=== PATIENT | female | born 1935 | race Caucasian/White ===

== ENCOUNTER → 2017-01-09 | Outpatient (CLI) | payer MEDICARE ==
--- NOTE | 2017-01-09 10:31 | MM ---
Reason for exam: additional evaluation requested from prior study. Last mammogram was performed 1 year ago. History: Patient is postmenopausal, has history of breast cancer at age 72, had previous chest radiation therapy at age 72, and is nulliparous. Lumpectomy of the left breast, May 2008. Core biopsy of the left breast, April 20, 2008. Radiation therapy, 2007. Cancelled Left Mammotome of the left breast, September 06, 2007. Taking antineoplastic for 4 years beginning at age 72. Physical Findings: Nurse did not find any significant physical abnormalities on exam. MG 3D Diag Mammo W/Cad HENRIQUE Bilateral CC and MLO view(s) were taken. Prior study comparison: January 07, 2016, bilateral MG 3d diag mammo w/cad HENRIQUE. January 04, 2015, bilateral MG diagnostic mammo w CAD HENRIQUE. January 01, 2014, CAD bilateral diagnostic mammogram. There are scattered fibroglandular densities. Finding #1: Architectural distortion in the left breast consistent with known lumpectomy. Finding #2: There are typically benign round, fine, linear calcifications in both breasts. There is a chronic nodularity in the right breast. Grouped calcifications in the left posterior aspect not distinctly visualized but benign morphology and posterior location. These results were verbally communicated with the patient and result sheet given to the patient on 01/09/17. ASSESSMENT: Probably benign, BI-RAD 3 RECOMMENDATION: Follow-up diagnostic mammogram of the left breast in 6 months.
== END | disposition home or self-care (01) ==
LOC: RADMAMWWP 09:15
PROVIDERS: ATTEND Internal Medicine Hematology & Oncology
DX: Z85.3 Personal history of malignant neoplasm of breast (principal)
CPT/HCPCS: G0204; G0279

== ENCOUNTER 2017-05-23 10:30 | Emergency (ER) | payer MEDICARE ==
[2017-05-23] MEDS ORDERED: SODIUM CHLORIDE 0.9% 1,000 ML IV STA ×2 (11:17)
--- NOTE | 2017-05-23 11:25 | ED ---
General Adult HPI - General Chief complaint: Weakness Stated complaint: Weakness Time Seen by Provider: 05/23/17 10:41 Source: patient, RN notes reviewed, old records reviewed Mode of arrival: wheelchair Limitations: no limitations - History of Present Illness Initial comments: This is a 81-year-old female ER for evaluation. Patient presents for evaluation regarding falls. Falls and weakness. Patient's family doctor for evaluation regarding recurrent falls and increasing weakness. Patient herself only complains of right hip pain. Patient has had increasing weakness for some time now. Patient denies any complaints of headache chest pain shortness of breath or abdominal pain - Related Data Home Medications Medication Instructions Recorded Confirmed Aspirin EC [Ecotrin] 81 mg PO DAILY PRN 03/19/16 05/23/17 Hydrochlorothiazide [Hydrodiuril] 25 mg PO DAILY 03/19/16 05/23/17 Turmeric Root Extract [Turmeric] 500 mg PO DAILY 05/23/17 05/23/17 Allergies Allergy/AdvReac Type Severity Reaction Status Date / Time No Known Allergies Allergy Verified 05/23/17 11:11 Review of Systems ROS Statement: Those systems with pertinent positive or pertinent negative responses have been documented in the HPI. ROS Other: All systems not noted in ROS Statement are negative. Past Medical History Past Medical History: Cancer, Hypertension Additional Past Medical History / Comment(s): Colonoscopy History of Any Multi-Drug Resistant Organisms: None Reported Past Surgical History: No Surgical Hx Reported Additional Past Surgical History / Comment(s): Lumpectomy Past Psychological History: No Psychological Hx Reported Smoking Status: Never smoker Past Alcohol Use History: None Reported Past Drug Use History: None Reported General Exam Limitations: no limitations General appearance: alert, in no apparent distress Head exam: Present: atraumatic, normocephalic, normal inspection Eye exam: Present: normal appearance, PERRL, EOMI. Absent: scleral icterus, conjunctival injection, periorbital swelling ENT exam: Present: normal exam, mucous membranes moist Neck exam: Present: normal inspection. Absent: tenderness, meningismus, lymphadenopathy Respiratory exam: Present: normal lung sounds bilaterally. Absent: respiratory distress, wheezes, rales, rhonchi, stridor Cardiovascular Exam: Present: regular rate, normal rhythm, normal heart sounds. Absent: systolic murmur, diastolic murmur, rubs, gallop, clicks GI/Abdominal exam: Present: soft, normal bowel sounds. Absent: distended, tenderness, guarding, rebound, rigid Extremities exam: Present: normal inspection, full ROM, normal capillary refill. Absent: tenderness, pedal edema, joint swelling, calf tenderness Back exam: Present: normal inspection Neurological exam: Present: alert, oriented X3, CN II-XII intact Psychiatric exam: Present: normal affect, normal mood Skin exam: Present: warm, dry, intact, normal color. Absent: rash Course Vital Signs 05/23/17 05/23/17 10:33 11:37 Temperature 97.5 F L Pulse Rate 105 H 103 H Respiratory 20 20 Rate Blood Pressure 176/95 146/84 O2 Sat by Pulse 97 96 Oximetry - Reevaluation(s) Reevaluation #1: 05/23/17 13:37 Patient remains without complaints throughout entire stay. Patient was initially complaints of left hip pain although she denies that now. EKG Findings - EKG Comments: EKG Findings:: EKG shows sinus tachycardia rate 106, ME 176, QRS 78, QTC 456 Medical Decision Making - Medical Decision Making 81 female year for evaluation regarding multiple recent falls. Patient has no injury, lab work are normal, patient's alert and oriented. Patient will be discharged home. Patient has no complaints - Lab Data Result diagrams: 05/23/17 10:50 05/23/17 10:50 Lab Results 05/23/17 05/23/17 05/23/17 Range/Units 10:50 10:50 10:50 WBC 4.3 (3.8-10.6) k/uL RBC 4.47 (3.80-5.40) m/uL Hgb 13.3 (11.4-16.0) gm/dL Hct 40.8 (34.0-46.0) % MCV 91.1 (80.0-100.0) fL MCH 29.7 (25.0-35.0) pg MCHC 32.6 (31.0-37.0) g/dL RDW 14.7 (11.5-15.5) % Plt Count 197 (150-450) k/uL Neutrophils % 66 % Lymphocytes % 21 % Monocytes % 7 % Eosinophils % 3 % Basophils % 1 % Neutrophils # 2.8 (1.3-7.7) k/uL Lymphocytes # 0.9 L (1.0-4.8) k/uL Monocytes # 0.3 (0-1.0) k/uL Eosinophils # 0.1 (0-0.7) k/uL Basophils # 0.0 (0-0.2) k/uL PT (9.0-12.0) sec INR (<1.2) APTT (22.0-30.0) sec Sodium 141 (137-145) mmol/L Potassium 4.1 (3.5-5.1) mmol/L Chloride 107 (98-107) mmol/L Carbon Dioxide 25 (22-30) mmol/L Anion Gap 9 mmol/L BUN 6 L (7-17) mg/dL Creatinine 0.67 (0.52-1.04) mg/dL Est GFR (MDRD) Af Amer >60 (>60 ml/min/1.73 sqM) Est GFR (MDRD) Non-Af >60 (>60 ml/min/1.73 sqM) Glucose 87 (74-99) mg/dL Calcium 9.1 (8.4-10.2) mg/dL Phosphorus 3.0 (2.5-4.5) mg/dL Magnesium 2.0 (1.6-2.3) mg/dL Total Bilirubin 1.0 (0.2-1.3) mg/dL AST 26 (14-36) U/L ALT 27 (9-52) U/L Alkaline Phosphatase 103 (38-126) U/L Total Creatine Kinase 156 H (30-135) U/L CK-MB (CK-2) 1.5 (0.0-2.4) ng/mL CK-MB (CK-2) Rel Index 1.0 Troponin I <0.012 (0.000-0.034) ng/mL Total Protein 6.3 (6.3-8.2) g/dL Albumin 3.8 (3.5-5.0) g/dL Urine Color Urine Appearance (Clear) Urine pH (5.0-8.0) Ur Specific [place] (1.001-1.035) Urine Protein (Negative) Urine Glucose (UA) (Negative) Urine Ketones (Negative) Urine Blood (Negative) Urine Nitrite (Negative) Urine Bilirubin (Negative) Urine Urobilinogen (<2.0) mg/dL Ur Leukocyte Esterase (Negative) Urine RBC (0-5) /hpf Urine WBC (0-5) /hpf Urine Mucus (None) /hpf 05/23/17 05/23/17 Range/Units 10:50 11:22 WBC (3.8-10.6) k/uL RBC (3.80-5.40) m/uL Hgb (11.4-16.0) gm/dL Hct (34.0-46.0) % MCV (80.0-100.0) fL MCH (25.0-35.0) pg MCHC (31.0-37.0) g/dL RDW (11.5-15.5) % Plt Count (150-450) k/uL Neutrophils % % Lymphocytes % % Monocytes % % Eosinophils % % Basophils % % Neutrophils # (1.3-7.7) k/uL Lymphocytes # (1.0-4.8) k/uL Monocytes # (0-1.0) k/uL Eosinophils # (0-0.7) k/uL Basophils # (0-0.2) k/uL PT 10.0 (9.0-12.0) sec INR 1.0 (<1.2) APTT 22.7 (22.0-30.0) sec Sodium (137-145) mmol/L Potassium (3.5-5.1) mmol/L Chloride (98-107) mmol/L Carbon Dioxide (22-30) mmol/L Anion Gap mmol/L BUN (7-17) mg/dL Creatinine (0.52-1.04) mg/dL Est GFR (MDRD) Af Amer (>60 ml/min/1.73 sqM) Est GFR (MDRD) Non-Af (>60 ml/min/1.73 sqM) Glucose (74-99) mg/dL Calcium (8.4-10.2) mg/dL Phosphorus (2.5-4.5) mg/dL Magnesium (1.6-2.3) mg/dL Total Bilirubin (0.2-1.3) mg/dL AST (14-36) U/L ALT (9-52) U/L Alkaline Phosphatase (38-126) U/L Total Creatine Kinase (30-135) U/L CK-MB (CK-2) (0.0-2.4) ng/mL CK-MB (CK-2) Rel Index Troponin I (0.000-0.034) ng/mL Total Protein (6.3-8.2) g/dL Albumin (3.5-5.0) g/dL Urine Color Light Yellow Urine Appearance Clear (Clear) Urine pH 7.0 (5.0-8.0) Ur Specific [place] 1.005 (1.001-1.035) Urine Protein Negative (Negative) Urine Glucose (UA) Negative (Negative) Urine Ketones Negative (Negative) Urine Blood Negative (Negative) Urine Nitrite Negative (Negative) Urine Bilirubin Negative (Negative) Urine Urobilinogen <2.0 (<2.0) mg/dL Ur Leukocyte Esterase Trace H (Negative) Urine RBC 1 (0-5) /hpf Urine WBC 2 (0-5) /hpf Urine Mucus Rare H (None) /hpf - Radiology Data Radiology results: report reviewed (CT brain C-spine chest x-ray and pelvis x- ray are negative for acute disease), image reviewed Disposition Clinical Impression: Weakness, Falls, Right hip pain Disposition: HOME SELF-CARE Condition: Good Instructions: Fall Prevention for Older Adults (ED) Referrals: Tyler Lawton MD [Primary Care Provider] - 1-2 days
[2017-05-23 11:31] LABS: Basophils % (A) 1 %; CH 30.5; CHCM 33.7; Eosinophils # (A) 0.1 k/uL (0-0.7); Eosinophils % (A) 3 %; HCT 40.8 % (34.0-46.0); HDW 2.65; HGB 13.3 gm/dL (11.4-16.0); Luc % (Auto) 2; Lymphocytes # (A) 0.9 k/uL (1.0-4.8); Lymphocytes % (A) 21 %; MCH 29.7 pg (25.0-35.0); MCHC 32.6 g/dL (31.0-37.0); MCV 91.1 fL (80.0-100.0); Mean Platelet Volume 7.3; Monocytes # (A) 0.3 k/uL (0-1.0); Monocytes % (A) 7 %; Neutrophils # (A) 2.8 k/uL (1.3-7.7); Neutrophils % (A) 66 %; RBC 4.47 m/uL (3.80-5.40); RDW 14.7 % (11.5-15.5); WBC 4.3 k/uL (3.8-10.6); WBC (Perox) 4.09
[2017-05-23 11:42] VITALS: RESP 20
[2017-05-23 11:43] LABS: ALT 27 U/L (9-52); AST 26 U/L (14-36); Alkaline Phosphatase 103 U/L (38-126); Anion Gap 9 mmol/L; Blood Urea Nitrogen 6 mg/dL (7-17); Calcium 9.1 mg/dL (8.4-10.2); Carbon Dioxide 25 mmol/L (22-30); Chloride 107 mmol/L (98-107); Glucose 87 mg/dL (74-99); Non-African American GFR(MDRD) >60 (>60 ml/min/1.73 sqM); Potassium 4.1 mmol/L (3.5-5.1); Sodium 141 mmol/L (137-145); Total Protein 6.3 g/dL (6.3-8.2)
[2017-05-23 11:51] LABS: Appearance,Urine Clear (Clear); Bilirubin,Urine Negative (Negative); Glucose,Urine (UA) Negative (Negative); Ketones,Urine Negative (Negative); Leukocyte Esterase,Urine Trace (Negative); Mucus,Urine Rare /hpf; Nitrite,Urine Negative (Negative); Particle Count 1280; Protein,Urine Negative (Negative); RBC,Urine 1 /hpf (0-5); Specific Gravity,Urine 1.005 (1.001-1.035); UA Billing (MACRO vs. MICRO) MICRO; Urobilinogen,Urine <2.0 mg/dL (<2.0); WBC,Urine 2 /hpf (0-5)
[2017-05-23 11:54] LABS: Creatine Kinase 156 U/L (30-135)
--- NOTE | 2017-05-23 12:05 | XR ---
EXAMINATION TYPE: XR chest 1V DATE OF EXAM: 05/23/2017 COMPARISON: Prior chest x-ray 03/19/2016 HISTORY: Pain, recent falls, abnormal chest x-ray TECHNIQUE: Single frontal view of the chest is obtained. FINDINGS: There is no focal air space opacity, pleural effusion, or pneumothorax seen. The cardiac silhouette size is stable, heart is enlarged. Postop change noted to the left axilla and left breast . Arthropathy noted within the shoulders. There is a spinal curvature. The osseous structures are int act. IMPRESSION: No acute process. Stable cardiomegaly.
[2017-05-23 12:08] LABS: Creatine Kinase MB 1.5 ng/mL (0.0-2.4); Troponin I <0.012 ng/mL (0.000-0.034)
[2017-05-23 12:19] LABS: Partial Thromboplastin Time 22.7 sec (22.0-30.0)
--- NOTE | 2017-05-23 13:32 | CT ---
EXAMINATION TYPE: CT brain cspine wo con DATE OF EXAM: 05/23/2017 COMPARISON: Previous exam CT Cervical spine and brain 03/19/2016 HISTORY: LÓPEZ, weakness and falls CT DLP: Brain 1089.7, Cervical 364 mGycm Automated exposure control for dose reduction was used. TECHNIQUE: CT scan of the head and cervical spine are performed without contrast. FINDINGS: There is no acute intracranial hemorrhage, mass effect, or midline shift identified. The ventricles and sulci are within normal limits in size. Cerumen in the external auditory canals. The globes are intact and the visualized sinuses are clear. White matter demyelination changes, cortical atrophy again noted. Cervical spine is visualized in its entirety from C1 through upper thoracic levels and demonstrates s atisfactory alignment without evidence of acute fracture or dislocation. Prevertebral soft tissue ap pears within normal limits. There is multilevel cervical spondylosis. Loss of disc height present at C3-4, C5-6 and C6-7. There is multilevel facet arthropathy and foraminal encroachment as on prior exa m. The C1-C2 articulation is unremarkable. IMPRESSION: 1. There is no acute fracture or dislocation evident in the cervical spine. 2. No acute intracranial hemorrhage, mass effect, or midline shift is seen.
--- NOTE | 2017-05-23 14:00 | XR ---
EXAMINATION TYPE: XR Hip RT and AP Pelvis DATE OF EXAM: 05/23/2017 COMPARISON: Pelvis 03/19/2016 HISTORY: Pain, trauma TECHNIQUE: A single AP view of the pelvis is obtained. Two views of the right hip are obtained. FINDINGS: There is no acute fracture/dislocation evident in the pelvis. Marked arthropathy is presen t in the bilateral hips, correlate for possible femoral acetabular impingement. Degenerative disc changes in the visualized spine. There are vascular calcifications in the pelvis. IMPRESSION: There is no acute fracture or dislocation in the pelvis or right hip.
[2017-05-23 14:08] VITALS: PULSE 106
[2017-05-23 14:19] VITALS: BP 151/79; TEMP 98.3
== END 2017-05-23 14:31 | disposition home or self-care (01) ==
LOC: EC 10:30
DX: R53.1 Weakness (principal); R26.9 Unspecified abnormalities of gait and mobility; M25.551 Pain in right hip; I10 Essential (primary) hypertension; Z85.9 Personal history of malignant neoplasm, unspecified; Z79.899 Other long term (current) drug therapy
CPT/HCPCS: 36415; 70450; 71010; 72125; 73502; 80053; 81001; 82550; 82553; 83735; 84100; 84484; 85025; 85610; 85730; 87086; 93005; 96360; 96361; 99285

== ENCOUNTER 2017-09-20 12:10 | Inpatient (IN) | payer MEDICARE ==
[2017-09-20] MEDS ORDERED: SODIUM CHLORIDE 0.9% 1,000 ML IV ONE (12:32)
--- NOTE | 2017-09-20 12:38 | ED ---
General Adult HPI - General Source: patient, family, EMS, RN notes reviewed Mode of arrival: EMS Limitations: no limitations, physical limitation <Jacobo Bright - Last Filed: 09/20/17 14:35> <Chicho Brown - Last Filed: 09/20/17 14:40> - General Chief complaint: Fall Stated complaint: Fall/Altered Time Seen by Provider: 09/20/17 12:15 - History of Present Illness Initial comments: This an 82-year-old female presents emergency department via EMS chief complaint fall, dizziness. Patient reports that 3 falls last 24 hours. Patient reportedly first fell last night found by her brother this morning on the ground she states that she is up-to-date on all night and has been incontinent of urine. Patient states that she is not confused though EMS reported that she's had some bouts of confusion. Father states that she is at her normal baseline at this time. Patient denies headache, dizziness, chest pain, shortness breath. She does complain of right knee pain. Patient states she may have struck her head she's unsure. Denies any no fever or chills. ( Jacobo Bright) - Related Data Home Medications Medication Instructions Recorded Confirmed Aspirin EC [Ecotrin] 81 mg PO DAILY PRN 03/19/16 09/20/17 Hydrochlorothiazide [Hydrodiuril] 25 mg PO DAILY 03/19/16 09/20/17 Turmeric Root Extract [Turmeric] 500 mg PO DAILY 05/23/17 09/20/17 Critz-3 Fatty Acids/Fish Oil [Fish 1 cap PO DAILY 09/20/17 09/20/17 Oil 1,000 mg Softgel] Allergies Allergy/AdvReac Type Severity Reaction Status Date / Time No Known Allergies Allergy Verified 09/20/17 13:19 Review of Systems ROS Other: All systems not noted in ROS Statement are negative. <Jacobo Bright - Last Filed: 09/20/17 14:35> ROS Other: All systems not noted in ROS Statement are negative. <Chicho Brown - Last Filed: 09/20/17 14:40> ROS Statement: Those systems with pertinent positive or pertinent negative responses have been documented in the HPI. Past Medical History Past Medical History: Cancer, Hypertension Additional Past Medical History / Comment(s): Colonoscopy History of Any Multi-Drug Resistant Organisms: None Reported Past Surgical History: No Surgical Hx Reported Additional Past Surgical History / Comment(s): Lumpectomy Past Psychological History: No Psychological Hx Reported Smoking Status: Never smoker Past Alcohol Use History: None Reported Past Drug Use History: None Reported <Jacobo Bright - Last Filed: 09/20/17 14:35> General Exam Limitations: no limitations, physical limitation General appearance: alert, in no apparent distress Head exam: Present: atraumatic, normocephalic, normal inspection Eye exam: Present: normal appearance, PERRL, EOMI. Absent: scleral icterus, conjunctival injection, periorbital swelling ENT exam: Present: normal exam, normal oropharynx, mucous membranes moist, TM's normal bilaterally, normal external ear exam Neck exam: Present: normal inspection, full ROM. Absent: tenderness, meningismus, lymphadenopathy Respiratory exam: Present: normal lung sounds bilaterally. Absent: respiratory distress, wheezes, rales, rhonchi, stridor Cardiovascular Exam: Present: regular rate, normal rhythm, normal heart sounds. Absent: systolic murmur, diastolic murmur, rubs, gallop, clicks GI/Abdominal exam: Present: soft, normal bowel sounds. Absent: distended, tenderness, guarding, rebound, rigid Extremities exam: Present: other (Mild swelling to the right knee, pain with range of motion) Back exam: Present: full ROM. Absent: tenderness Neurological exam: Present: alert, oriented X3, CN II-XII intact Skin exam: Present: warm, dry, intact, normal color. Absent: rash <Jacobo Bright José - Last Filed: 09/20/17 14:35> Vital Signs 09/20/17 09/20/17 12:17 14:29 Temperature 97 F L Pulse Rate 76 80 Respiratory 17 18 Rate Blood Pressure 158/80 159/78 O2 Sat by Pulse 96 99 Oximetry EKG Findings - EKG Comments: EKG Findings:: EKG performed at 12:39 normal sinus rhythm with a rate of 62 MS 150 QRS 74 QT/QTC 446/452 <Jacobo Bright - Last Filed: 09/20/17 14:35> Medical Decision Making - Lab Data Result diagrams: 09/20/17 12:54 09/20/17 12:54 <Jacobo Bright - Last Filed: 09/20/17 14:35> - Lab Data Result diagrams: 09/20/17 12:54 09/20/17 12:54 <Chicho Brown - Last Filed: 09/20/17 14:40> - Medical Decision Making The patient is seen and examined. All diagnostics are reviewed. Case is discussed with internal medicine and they're agreeable with admission. The case is discussed with the PA and agree with the findings as documented. (Chicho Brown) - Lab Data Lab Results 09/20/17 09/20/17 09/20/17 Range/Units 12:52 12:54 12:54 WBC 7.0 (3.8-10.6) k/uL RBC 4.60 (3.80-5.40) m/uL Hgb 13.3 (11.4-16.0) gm/dL Hct 41.1 (34.0-46.0) % MCV 89.4 (80.0-100.0) fL MCH 29.0 (25.0-35.0) pg MCHC 32.5 (31.0-37.0) g/dL RDW 15.3 (11.5-15.5) % Plt Count 172 (150-450) k/uL Neutrophils % 83 % Lymphocytes % 11 % Monocytes % 5 % Eosinophils % 1 % Basophils % 0 % Neutrophils # 5.8 (1.3-7.7) k/uL Lymphocytes # 0.7 L (1.0-4.8) k/uL Monocytes # 0.3 (0-1.0) k/uL Eosinophils # 0.0 (0-0.7) k/uL Basophils # 0.0 (0-0.2) k/uL PT (9.0-12.0) sec INR (<1.2) APTT (22.0-30.0) sec Sodium (137-145) mmol/L Potassium (3.5-5.1) mmol/L Chloride (98-107) mmol/L Carbon Dioxide (22-30) mmol/L Anion Gap mmol/L BUN (7-17) mg/dL Creatinine (0.52-1.04) mg/dL Est GFR (MDRD) Af Amer (>60 ml/min/1.73 sqM) Est GFR (MDRD) Non-Af (>60 ml/min/1.73 sqM) Glucose (74-99) mg/dL POC Glucose (mg/dL) 79 (75-99) mg/dL POC Glu Immunochemist ID Jarad Lopez Calcium (8.4-10.2) mg/dL Total Bilirubin (0.2-1.3) mg/dL AST (14-36) U/L ALT (9-52) U/L Alkaline Phosphatase (38-126) U/L Total Creatine Kinase 408 H (30-135) U/L CK-MB (CK-2) 6.1 H* (0.0-2.4) ng/mL CK-MB (CK-2) Rel Index 1.5 Troponin I 0.014 (0.000-0.034) ng/mL Total Protein (6.3-8.2) g/dL Albumin (3.5-5.0) g/dL Urine Color Urine Appearance (Clear) Urine pH (5.0-8.0) Ur Specific [place] (1.001-1.035) Urine Protein (Negative) Urine Glucose (UA) (Negative) Urine Ketones (Negative) Urine Blood (Negative) Urine Nitrite (Negative) Urine Bilirubin (Negative) Urine Urobilinogen (<2.0) mg/dL Ur Leukocyte Esterase (Negative) Urine WBC (0-5) /hpf Urine Bacteria (None) /hpf Urine Mucus (None) /hpf Urine Opiates Screen (NotDetected) Ur Oxycodone Screen (NotDetected) Urine Methadone Screen (NotDetected) Ur Propoxyphene Screen (NotDetected) Ur Barbiturates Screen (NotDetected) U Tricyclic Antidepress (NotDetected) Ur Phencyclidine Scrn (NotDetected) Ur Amphetamines Screen (NotDetected) U Methamphetamines Scrn (NotDetected) U Benzodiazepines Scrn (NotDetected) Urine Cocaine Screen (NotDetected) U Marijuana (THC) Screen (NotDetected) 09/20/17 09/20/17 09/20/17 Range/Units 12:54 12:54 13:02 WBC (3.8-10.6) k/uL RBC (3.80-5.40) m/uL Hgb (11.4-16.0) gm/dL Hct (34.0-46.0) % MCV (80.0-100.0) fL MCH (25.0-35.0) pg MCHC (31.0-37.0) g/dL RDW (11.5-15.5) % Plt Count (150-450) k/uL Neutrophils % % Lymphocytes % % Monocytes % % Eosinophils % % Basophils % % Neutrophils # (1.3-7.7) k/uL Lymphocytes # (1.0-4.8) k/uL Monocytes # (0-1.0) k/uL Eosinophils # (0-0.7) k/uL Basophils # (0-0.2) k/uL PT 10.3 (9.0-12.0) sec INR 1.1 (<1.2) APTT 22.5 (22.0-30.0) sec Sodium 143 (137-145) mmol/L Potassium 3.9 (3.5-5.1) mmol/L Chloride 107 (98-107) mmol/L Carbon Dioxide 24 (22-30) mmol/L Anion Gap 12 mmol/L BUN 13 (7-17) mg/dL Creatinine 0.60 (0.52-1.04) mg/dL Est GFR (MDRD) Af Amer >60 (>60 ml/min/1.73 sqM) Est GFR (MDRD) Non-Af >60 (>60 ml/min/1.73 sqM) Glucose 80 (74-99) mg/dL POC Glucose (mg/dL) (75-99) mg/dL POC Glu Immunochemist ID Calcium 9.0 (8.4-10.2) mg/dL Total Bilirubin 1.6 H (0.2-1.3) mg/dL AST 35 (14-36) U/L ALT 28 (9-52) U/L Alkaline Phosphatase 153 H (38-126) U/L Total Creatine Kinase (30-135) U/L CK-MB (CK-2) (0.0-2.4) ng/mL CK-MB (CK-2) Rel Index Troponin I (0.000-0.034) ng/mL Total Protein 5.9 L (6.3-8.2) g/dL Albumin 3.5 (3.5-5.0) g/dL Urine Color Yellow Urine Appearance Clear (Clear) Urine pH 5.5 (5.0-8.0) Ur Specific [place] 1.020 (1.001-1.035) Urine Protein Negative (Negative) Urine Glucose (UA) Negative (Negative) Urine Ketones 2+ H (Negative) Urine Blood Negative (Negative) Urine Nitrite Negative (Negative) Urine Bilirubin Negative (Negative) Urine Urobilinogen 2.0 (<2.0) mg/dL Ur Leukocyte Esterase Small H (Negative) Urine WBC 3 (0-5) /hpf Urine Bacteria Rare H (None) /hpf Urine Mucus Rare H (None) /hpf Urine Opiates Screen Not Detected (NotDetected) Ur Oxycodone Screen Not Detected (NotDetected) Urine Methadone Screen Not Detected (NotDetected) Ur Propoxyphene Screen Not Detected (NotDetected) Ur Barbiturates Screen Not Detected (NotDetected) U Tricyclic Antidepress Not Detected (NotDetected) Ur Phencyclidine Scrn Not Detected (NotDetected) Ur Amphetamines Screen Not Detected (NotDetected) U Methamphetamines Scrn Not Detected (NotDetected) U Benzodiazepines Scrn Not Detected (NotDetected) Urine Cocaine Screen Not Detected (NotDetected) U Marijuana (THC) Screen Not Detected (NotDetected) Disposition <Jacobo Bright - Last Filed: 09/20/17 14:35> <Chicho Brown - Last Filed: 09/20/17 14:40> Clinical Impression: Dizziness, Frequent falls, Pneumonia, UTI (urinary tract infection), Weakness Disposition: ADMITTED IP TO THIS [facility] Condition: Fair Referrals: Tyler Lawton MD [Primary Care Provider] - 1-2 days
[2017-09-20 12:54] LABS: Glucose,Whole Blood 79 mg/dL (75-99)
[2017-09-20 13:11] LABS: Basophils % (A) 0 %; Eosinophils % (A) 1 %; HCT 41.1 % (34.0-46.0); HGB 13.3 gm/dL (11.4-16.0); Lymphocytes # (A) 0.7 k/uL (1.0-4.8); Lymphocytes % (A) 11 %; MCHC 32.5 g/dL (31.0-37.0); MCV 89.4 fL (80.0-100.0); Mean Platelet Volume 7.9; Monocytes # (A) 0.3 k/uL (0-1.0); Monocytes % (A) 5 %; Neutrophils # (A) 5.8 k/uL (1.3-7.7); Neutrophils % (A) 83 %; Platelet Count 172 k/uL (150-450); RDW 15.3 % (11.5-15.5)
[2017-09-20 13:18] LABS: ALT 28 U/L (9-52); AST 35 U/L (14-36); Albumin 3.5 g/dL (3.5-5.0); Alkaline Phosphatase 153 U/L (38-126); Anion Gap 12 mmol/L; Blood Urea Nitrogen 13 mg/dL (7-17); Carbon Dioxide 24 mmol/L (22-30); Chloride 107 mmol/L (98-107); Glucose 80 mg/dL (74-99); Potassium 3.9 mmol/L (3.5-5.1); Sodium 143 mmol/L (137-145); Total Bilirubin 1.6 mg/dL (0.2-1.3); Total Protein 5.9 g/dL (6.3-8.2)
--- NOTE | 2017-09-20 13:37 | CT ---
EXAMINATION TYPE: CT brain wo con DATE OF EXAM: 09/20/2017 HISTORY: Fall injury with altered mental status CT DLP: 1233 mGycm. Automated Exposure Control for Dose Reduction was Utilized. TECHNIQUE: CT scan of the head is performed without contrast. COMPARISON: CT brain May 23, 2017. FINDINGS: There is no acute intracranial hemorrhage or midline shift identified. There is diffuse v entricular and sulcal prominence consistent with diffuse age-related cerebral atrophy. There is low- attenuation in the periventricular white matter consistent with chronic small vessel ischemic change. Patchy soft tissue density bilateral extraocular exams is felt to reflect cerumen similar to prior. The globes are intact and the visualized sinuses are clear. The calvarium is intact. IMPRESSION: No acute intracranial hemorrhage or midline shift. There is moderate diffuse age-relate d cerebral atrophy and chronic small vessel ischemic change redemonstrated without significant interv al change.
[2017-09-20 13:41] LABS: Appearance,Urine Clear (Clear); Bacteria,Urine Rare /hpf; Bilirubin,Urine Negative (Negative); Blood,Urine Negative (Negative); Color,Urine Yellow; Glucose,Urine (UA) Negative (Negative); Ketones,Urine 2+ (Negative); Leukocyte Esterase,Urine Small (Negative); Mucus,Urine Rare /hpf; Nitrite,Urine Negative (Negative); PH, Urine 5.5 (5.0-8.0); Protein,Urine Negative (Negative); WBC,Urine 3 /hpf (0-5)
[2017-09-20 13:42] LABS: Amphetamine Screen,Urine Not Detected (NotDetected); Barbiturate Screen,Urine Not Detected (NotDetected); Benzodiazepines Screen,Urine Not Detected (NotDetected); Cocaine Screen,Urine Not Detected (NotDetected); Methadone Screen, Urine Not Detected (NotDetected); Opiate Screen,Urine Not Detected (NotDetected); Oxycodone Screen, Urine Not Detected (NotDetected); Phencyclidine Screen,Urine Not Detected (NotDetected); Tricyclic Antidepressant,Urine Not Detected (NotDetected); Urn Cannabinoid Scrn Not Detected (NotDetected)
[2017-09-20 13:43] LABS: Troponin I 0.014 ng/mL (0.000-0.034)
[2017-09-20 13:45] LABS: Creatine Kinase MB 6.1 ng/mL (0.0-2.4)
[2017-09-20 13:47] LABS: INR 1.1 (<1.2); Partial Thromboplastin Time 22.5 sec (22.0-30.0); Prothrombin Time 10.3 sec (9.0-12.0)
--- NOTE | 2017-09-20 14:06 | XR ---
EXAMINATION TYPE: XR chest 2V DATE OF EXAM: 09/20/2017 COMPARISON: 03/19/2016 TECHNIQUE: PA and lateral views submitted. HISTORY: Altered mental status FINDINGS: No pneumothorax. Use osteopenia noted. Arthropathy of the shoulders. Postsurgical change overlying th e left chest. Subsegmental changes at the left lung base. No overt failure. IMPRESSION: 1. Left basilar atelectasis or infiltrate.
--- NOTE | 2017-09-20 14:07 | XR ---
EXAMINATION TYPE: XR knee complete RT DATE OF EXAM: 09/20/2017 COMPARISON: NONE HISTORY: Pain TECHNIQUE: Four views are submitted. FINDINGS: Hypertrophic and degenerative change of all joint spaces. Soft tissue ossification the suprapatellar bursa. Vascular calcification seen. Osseous structures are intact. No acute fracture seen. IMPRESSION: 1. Moderate to severe osteoarthritis. Loose body within the suprapatellar bursa suspected.
--- NOTE | 2017-09-20 14:08 | XR ---
EXAMINATION TYPE: XR pelvis AP view DATE OF EXAM: 09/20/2017 COMPARISON: 05/23/2017 HISTORY: Pain. FINDINGS: There is no acute fracture/dislocation evident in the pelvis. Marked arthropathy is present in the bi lateral hips, correlate for possible femoral acetabular impingement. Degenerative disc changes in the visualized spine. There are vascular calcifications in the pelvis. IMPRESSION: 1. No acute fracture.
[2017-09-20] MEDS ORDERED: NALOXONE 0.4 MG/ML 1 ML VIAL IV PRN (14:36)
[2017-09-20] MEDS ORDERED: ONDANSETRON 4 MG/2 ML VIAL IVP PRN (14:36)
[2017-09-20] MEDS ORDERED: cefTRIAXone IN SWFI 1,000 MG/10 ML SYRINGE IVP STA (14:39)
[2017-09-20] MEDS: SODIUM CHLORIDE 0.9% 1,000 ML IV SCH (15:07)
[2017-09-20] MEDS: HYDROcodone/APAP 5-325MG 1 EACH TAB PO PRN (17:39)
--- NOTE | 2017-09-20 19:25 | HP ---
HISTORY AND PHYSICAL DATE OF ADMISSION: 09/20/17. PRESENTING COMPLAINT: Acute confusion. HISTORY OF PRESENTING COMPLAINT: This is an 82-year-old patient. The patient unable to give a good history. Patient's brother gave the history downstairs that patient normally is active, was found in the house with feces and all clutter on the floor as though she had been lying there. Patient not able to give much of history. She thinks it is 1916, knows her name, has difficulty also stating where she lives. Able to move all 4 limbs, though slightly jittery. Really cannot obtain more history than that and that the patient also was incontinent. Denies any shortness of breath. No cough. REVIEW OF SYSTEMS: Difficult to obtain because of confusion. PAST MEDICAL HISTORY: Cancer, hypertension. SURGICAL HISTORY: Lumpectomy. SOCIAL HISTORY: Does not smoke or drink alcohol. Lives by herself in a trailer. Retired teacher. FAMILY HISTORY: Patient cannot remember. HOME MEDICATIONS: 1. Fish oil 1 capsule p.o. daily. 2. Turmeric 500 mg p.o. daily. 3. Hydrochlorothiazide 25 p.o. daily. 4. Aspirin 81 mg daily p.r.n. ALLERGIES: None. PHYSICAL EXAMINATION: Temperature 97, pulse 96, respirations 17, blood pressure 150/80, pulse ox 96% on room: GENERAL APPEARANCE: Average built. Lying in bed. Does have somewhat dishevelled, unkempt and dirty. Somewhat slightly shaky. EYES: Pupils equal. Conjunctivae normal.. HEENT: Oral cavity dry. NECK: JVD not raised. Mass not palpable. RESPIRATORY: Effort normal. Lungs fair entry. CARDIOVASCULAR: First and second sounds, no edema. ABDOMEN: Soft, nontender. Liver and spleen not palpable. LYMPHATIC: No lymph nodes palpable in neck or axillae. PSYCHIATRY: Patient knows her name. Had to think for some time before she said where she lives. She thinks it is 1916. NEUROLOGICAL: Pupils equal. No facial asymmetry. Occasional mild tremor. No rigidity. Having some trouble following commands. INVESTIGATIONS: White count 7, hemoglobin 13.3, platelets 132, potassium 3.9, BUN and creatinine are normal. Urine ketone is 2+. ASSESSMENT: 1. This is a patient who was found very unkempt with feces in the apartment wandering if the patient had an acute psychotic episode. 2. Ketonuria, likely from starvation. 3. Clinical dehydration. PLAN: We will start the patient on Risperdal 0.5 mg at night. Fall precautions will be done. Psychiatry has been consulted. Patient actually did eat a meal earlier per the nurse. We will give IV fluids. ornamental bronze worker will be involved. Told the nurse to have the patient cleaned up. MMODL / IJN: [id number] /
[2017-09-20] MEDS: risperiDONE 0.5 MG TAB PO SCH (20:23)
[2017-09-20] MEDS: ENOXAPARIN 40 MG/0.4 ML SYRINGE SQ SCH (20:23)
[2017-09-20] MEDS ORDERED: cefTRIAXone IN SWFI 1,000 MG/10 ML SYRINGE IVP SCH (21:00)
[2017-09-21] MEDS: SODIUM CHLORIDE 0.9% 1,000 ML IV SCH ×3 (05:32→21:07)
[2017-09-21] MEDS: ENOXAPARIN 40 MG/0.4 ML SYRINGE SQ SCH (07:31)
[2017-09-21] MEDS ORDERED: HYDROCHLOROTHIAZIDE 25 MG TAB PO SCH (09:00)
[2017-09-21] MEDS: HYDROcodone/APAP 5-325MG 1 EACH TAB PO PRN (12:03)
[2017-09-21] MEDS ORDERED: risperiDONE 0.5 MG TAB PO STA (16:39)
--- NOTE | 2017-09-21 16:44 | CONS ---
CONSULTATION DATE OF SERVICE: 09/21/2017. PURPOSE FOR CONSULTATION: Evaluate for acute confusion. HISTORY OF PRESENT ILLNESS: The patient is an 82-year-old female. She came to the emergency room via EMS with complaint of falls and dizziness. She reported 3 falls in the last 24 hours. Apparently, the brother found her on the morning of admission. She apparently had fallen the night before and was unable to get up at that point. She was not incontinent of urine. When presented to the ED, she was apparently able to respond appropriately, though EMS had reported she was having some bouts of confusion. In the emergency room, her brother indicated that she was at her normal baseline at the time they evaluated her. On exam in the emergency room, she was noted to be alert and oriented x3. When Dr. Mathis evaluated her on the medical floor, he noted that she said it was 1916. She knew her name. She had difficulty stating where she lived. She had trouble following some commands. She had difficulty stating where she lived. She had moderate confusion and had difficulty providing history of recent events. Apparently, not only was the patient lying at the floor at home, but there was much clutter around her. Dr. Mathis had concern that she may have had an acute psychotic episode. She has a diagnosis of bipolar disorder with a long history of psychiatric issues. She has been followed by Dr. Paula. She was determined to have a clinical dehydration as well as ketonuria, which likely was from starvation. On admission, it was not documented that she was on any psychotropic medications. Dr. Mathis has started Risperdal 0.5 mg at bedtime. She apparently slept fairly well last night. Today she has been somewhat better in her cognition. She is cooperative. She has an even mood. She seems to have less confusion. MENTAL STATUS: Patient was lying in bed. She gave fair eye contact. She was waiting for staff to help her. She made the comment that she was waiting to be taken to the ambulance. The nurse stated that in fact she was going to be helped out of bed so that she could ambulate on the floor. The patient answered questions generally appropriately. Her mood was even. She was able to tell me it was 2017 and that it was September. She thought it was . She knew she was in [facility]. She was a little slow in her responses, though overall gave appropriate responses. ASSESSMENT: This 82-year-old female is diagnosed with possible delirium related to dehydration. It is not clear there are negative cognition related to ketosis. While Dr. Mathis raised concern about possible acute psychotic episode, there is no information available regarding any of her current psychiatric issues. She is currently not on any psychotropic medications. At this point, it is appropriate to continue her on Respirdal 0.5 mg q.h.s. if her issues are related to delirium I would anticipate a gradual progressive improvement over the next several days. I will continue to follow. MMODL / IJN: [id number] /
--- NOTE | 2017-09-21 19:24 | P.PN ---
Progress Note - Text Progress Note Date: 09/21/17 DATE OF SERVICE: 09/21/2017 PRESENTING COMPLAINT: Acute confusion HISTORY OF PRESENT ILLNESS: 82-year-old female who was found in her house with feces and collateral all around on the floor and she had been lying there. All history was provided by the brother. Patient admitted for possible acute psychotic episode INTERVAL HISTORY: 09/21/2017: Patient lying in bed is awake, very chatty. Afebrile, vital signs stable, Is able to answer simple straightforward questions, has a good appetite ate 100% of her breakfast, wants to get up out of bed, waiting for psychiatry to see the patient. REVIEW OF SYSTEMS: Done for constitutional ,cardiovascular, GI, pulmonary with relevant findings as above. CURRENT MEDICATIONS [place], Lovenox, Narcan, Zofran, Risperdal, normal saline. PHYSICAL EXAM VITAL SIGNS: Temperature 96.7, pulse 67, respiratory rate 18, blood pressure 106/57, oxygen saturation 94%. GENERAL APPEARANCE: Lying in bed, not in distress. HEENT: Normocephalic, Pupils equal. Conjunctiva normal. JVD not raised. Mass not palpable.: RESPIRATORY: Respiratory effort normal. Lungs fair air entry. CARDIOVASCULAR: First and second sounds normal. No edema. ABDOMEN: Soft. Liver and spleen not palpable. No tenderness. No mass palpable. PSYCHIATRY: Alert and oriented x3. Mood and affect normal. Able to follow simple straightforward commands INVESTIGATIONS: ASSESSMENT: -Delirium related to dehydration -Ketonuria, likely from starvation -Clinical dehydration improving PLAN: Continue IV fluids, patient has a good appetite. Psychiatry evaluated the patient and agrees with Risperdal continuation and believes that the issue she had a related delirium she should gradually improve over the next few days. Discharge planning to place her at a facility here in [facility] social workers involved. Plan of care discussed at the bedside we will follow closely. SUPPORT DBA statement: Patient was seen and examined by nurse practitioner Leigh Ann Silva and all elements of the case discussed with attending Dr. Mathis
[2017-09-21] MEDS: risperiDONE 0.5 MG TAB PO SCH (21:05)
--- NOTE | 2017-09-21 22:32 | PN ---
PROGRESS NOTE DATE OF SERVICE: September 21, 2017. ATTENDING NOTE: Patient seen and examined by me. I discussed with nurse practitioner, Reymundo Shira. This is a patient who was at the house rather confused with feces all over. Started the patient on Risperdal last night. The patient is far more appropriate today, answering more questions, though not entirely back to baseline. Did eat much better. PHYSICAL EXAMINATION: Temperature 96.1, pulse 89, respiratory rate 16, blood pressure 116/66, pulse 92% on room air. The patient knows her name, where she is in the hospital, where she lives, far more composed today. LUNGS: Clear. ASSESSMENT: 1. Acute delirium related to dehydration. 2. Ketonuria. 3. Possible psychosis. PLAN: 1. Discussed with Dr. Perez. 2. I will keep the patient on Risperdal. 3. Oral intake is improving. 4. Will DC the IV fluids later today. 5. We will also add Ceftin 250 twice a day for possible UTI, which may have precipitated this episode, Risperdal. MMODL / IJN: [id number] /
[2017-09-21] MEDS: CEFUROXIME 250 MG TAB PO SCH (22:33)
[2017-09-22] MEDS: ENOXAPARIN 40 MG/0.4 ML SYRINGE SQ SCH (07:19)
[2017-09-22] MEDS: CEFUROXIME 250 MG TAB PO SCH ×2 (07:19→20:35)
--- NOTE | 2017-09-22 19:54 | PN ---
PROGRESS NOTE DATE OF SERVICE: 09/22/2017. ATTENDING NOTE: The patient seen and examined by me. Discussed with nurse practitioner, Ms. Silva. Patient admitted with acute episode of confusion, felt to be acute delirium, possibly underlying psychosis. The patient is still again talking off a bit today trying to put buttons together on the patient gown. She has taken it off. The patient on Risperdal. PHYSICAL EXAMINATION: Temperature 97.9, pulse 90, respiratory rate 16, blood pressure 130/80, pulse ox 92% on room air. The patient is able answer some questions. Somewhat jittery. INVESTIGATIONS: No blood work from today. ASSESSMENT: 1. Acute delirium versus psychosis. 2. Ketonuria from starvation. 3. Acute urinary tract infection. PLAN: We will increase the evening dose of Risperdal 2.75 mg. We will add a small dose of 0.25 in the morning. MMODL / IJN: [id number] /
--- NOTE | 2017-09-22 20:17 | P.PN ---
Progress Note - Text Progress Note Date: 09/22/17 DATE OF SERVICE: 09/22/2017 PRESENTING COMPLAINT: Acute confusion HISTORY OF PRESENT ILLNESS: 82-year-old female who was found in her house with feces and collateral all around on the floor and she had been lying there. All history was provided by the brother. Patient admitted for possible acute psychotic episode INTERVAL HISTORY: 09/22/2017: Patient lying in bed awake very talkative. Afebrile, vital signs are stable Answer some simple straightforward questions but does hesitate, struggles with where she is at, does seem at times to be hallucinating, seeing things that are not there. Appetite is good eats 100% of her meals. 09/21/2017: Patient lying in bed is awake, very chatty. Afebrile, vital signs stable, Is able to answer simple straightforward questions, has a good appetite ate 100% of her breakfast, wants to get up out of bed, waiting for psychiatry to see the patient. REVIEW OF SYSTEMS: Done for constitutional ,cardiovascular, GI, pulmonary with relevant findings as above. CURRENT MEDICATIONS [place], Lovenox, Narcan, Zofran, Risperdal, normal saline. PHYSICAL EXAM VITAL SIGNS: Temperature 96.4, pulse 89, respirations 18, blood pressure 130/63, oxygen saturation 92% on room air. GENERAL APPEARANCE: Lying in bed, not in distress HEENT: Normocephalic, Pupils equal. Conjunctiva normal. JVD not raised. Mass not palpable.: RESPIRATORY: Respiratory effort normal. Lungs fair air entry. CARDIOVASCULAR: First and second sounds normal. No edema. ABDOMEN: Soft. Liver and spleen not palpable. No tenderness. No mass palpable. PSYCHIATRY: Alert and oriented x3. Mood and affect somewhat off, jittery. Able to follow simple straightforward commands INVESTIGATIONS: LABS none new ASSESSMENT: -Delirium related to dehydration -Ketonuria, likely from starvation -Acute urinary tract infection -Clinical dehydration improving PLAN: Patient has a good appetite. Psychiatry to re- evaluate soon. Discharge planning to place her at a facility here in [facility] social workers involved. Plan of care discussed at the bedside we will follow closely. SMOKE INSPECTOR statement: Patient was seen and examined by nurse practitioner Leigh Ann Silva and all elements of the case discussed with attending Dr. Mathis
[2017-09-22] MEDS: risperiDONE 0.25 MG TAB PO SCH (20:36)
--- NOTE | 2017-09-22 23:15 | CONS ---
CONSULTATION DATE OF SERVICE: 09/22/2017. PURPOSE FOR CONSULTATION: Evaluate for acute confusion. INTERVAL HISTORY: Patient has been doing fair. She had a quiet evening last night. According to nursing, she slept fairly well. Today she has been up some of the day and then may nap at other times. Overall, she has not had any significant behavior issues. She can get restless at times, though responds fairly well to staff support. I reviewed her case with Dr. Mathis, who noted that he had increased her Risperdal because of reports this morning of some restlessness. She is tolerating the Risperdal well. Also, he did start her on the treatment for a UTI and anticipates 3 days of antibiotics. It is the case that sometimes delirium can intensify after starting antibiotics. When I saw her, she was in her room. She said a few things to me. She appeared to have just woken up from a nap. She was calm. She smiled a little. At this point, I will continue the current diagnosis and treatment plan. She is making progress. I will continue to follow. MMODL / IJN: [id number] /
[2017-09-23] MEDS: CEFUROXIME 250 MG TAB PO SCH ×2 (07:23→21:55)
[2017-09-23] MEDS: ENOXAPARIN 40 MG/0.4 ML SYRINGE SQ SCH (07:23)
[2017-09-23] MEDS: risperiDONE 0.25 MG TAB PO SCH ×2 (07:23→21:56)
--- NOTE | 2017-09-23 17:22 | CONS ---
CONSULTATION DATE OF SERVICE: 09/23/2017. PURPOSE OF CONSULTATION: Evaluate for acute confusion. INTERVAL HISTORY: Patient has been doing fairly well overall. She continues to have a moderate degree of confusion. She struggles trying to answer orienting questions. She generally has a fairly good mood. She can get the irritable and restless with personal care. Otherwise, she seems to be doing fairly well. Her restlessness has improved with the increase in Risperdal that Dr. Mathis increased yesterday. Apparently, there has been some concern about her overall decline in cognitive function. When I saw the patient, she gave me fair eye contact. She was a little sleepy. She answered a few questions. Her thoughts were vague. She did make an effort to answer cognitive questions. She had a calm manner. At this point, I will continue her Respirdal the same. The two treatment issues that may be affecting cognition include one: Her use of hydrocodone, though she has not had any today or yesterday. Typically, she has received only one dose a day, so it is not likely to be to have a big impact. Also starting treatment with antibiotics for infection could increase her form protein load that can aggravate cognitive issues in the short run. I will continue her Respirdal the same and continue to follow. MMODL / IJN: [id number] /
--- NOTE | 2017-09-23 20:28 | P.PN ---
Progress Note - Text Progress Note Date: 09/23/17 DATE OF SERVICE: 09/23/2017 PRESENTING COMPLAINT: Acute confusion HISTORY OF PRESENT ILLNESS: 82-year-old female who was found in her house with feces and collateral all around on the floor and she had been lying there. All history was provided by the brother. Patient admitted for possible acute psychotic episode INTERVAL HISTORY: 09/23/2017: Lying in bed resting quietly. Afebrile, vital signs are stable. Able to answer some simple straightforward questions does hesitate with where she is at is not sure if she does begin to talk about children that are not there or getting in the car. She does struggle with the complete date, knows the season , has some awareness about her caregivers outside hospital.Last BM prior to admission. Psychiatry evaluated the patient today agrees with the continuation of her Risperdal. 09/22/2017: Patient lying in bed awake very talkative. Afebrile, vital signs are stable Answer some simple straightforward questions but does hesitate, struggles with where she is at, does seem at times to be hallucinating, seeing things that are not there. Psychiatry follows the patient agrees with the addition of Risperdal Appetite is good eats 100% of her meals. 09/21/2017: Patient lying in bed is awake, very chatty. Afebrile, vital signs stable, Is able to answer simple straightforward questions, has a good appetite ate 100% of her breakfast, wants to get up out of bed, waiting for psychiatry to see the patient. REVIEW OF SYSTEMS: Done for constitutional ,cardiovascular, GI, pulmonary with relevant findings as above. CURRENT MEDICATIONS [place], Lovenox, Narcan, Zofran, Risperdal, normal saline. PHYSICAL EXAM VITAL SIGNS: Temperature 97.1, pulse 80, respiratory rate 16, blood pressure 139/74, oxygen saturation 95% on room air. GENERAL APPEARANCE: Lying in bed, not in distress HEENT: Normocephalic, Pupils equal. Conjunctiva normal. JVD not raised. Mass not palpable.: RESPIRATORY: Respiratory effort normal. Lungs fair air entry. CARDIOVASCULAR: First and second sounds normal. No edema. ABDOMEN: Soft. Liver and spleen not palpable. No tenderness. No mass palpable. PSYCHIATRY: Alert and oriented 2. Mood and affect somewhat off, jittery. Able to follow simple straightforward commands, does talk about things that are not there. INVESTIGATIONS: LABS none new ASSESSMENT: -Acute Delirium versus psychoses,slow to respond -Ketonuria, likely from starvation -Acute urinary tract infection -Clinical dehydration improving PLAN: Evening dose of Risperdal increased yesterday along with the addition of a small dose in the morning patient seems to do well with this we will continue, psychiatry agrees. Discharge planning to place her at a facility here in [facility] social workers involved. Plan of care discussed at the bedside we will follow closely. LAST CHALKER statement: Patient was seen and examined by nurse practitioner Leigh Ann Silva and all elements of the case discussed with attending Dr. Mathis
--- NOTE | 2017-09-23 20:43 | PN ---
PROGRESS NOTE DATE OF SERVICE: 09/23/17 ATTENDING NOTE: Patient seen and examined by me. I discussed with nurse practitioner, Ms. Silva. Patient admitted with acute confusion, has been on Risperdal. The dose of which increased yesterday. Patient again seems to be off hallucinating, talking about children in the field. Tolerating a diet. PHYSICAL EXAMINATION: Afebrile. Blood pressure 139/74, pulse ox 95% on room air. Lungs are clear. The patient is talking about children playing in the field, etc. INVESTIGATIONS: No blood work from today. ASSESSMENT: 1. Acute delirium and/or component of acute psychosis. 2. Acute urinary tract infection. PLAN: Per Psychiatry Dr. Perez treatment of acute UTI could have been making this worse. Also, Hancock may be playing a component. Hence, we will DC the [place], use naproxen for pain control. Keep the patient on current dose of Risperdal. MMODL / IJN: [id number] /
[2017-09-23] MEDS: NAPROXEN 250 MG TAB PO SCH (21:56)
[2017-09-24] MEDS: risperiDONE 0.25 MG TAB PO SCH (08:10)
[2017-09-24] MEDS: CEFUROXIME 250 MG TAB PO SCH ×2 (08:10→20:01)
[2017-09-24] MEDS: NAPROXEN 250 MG TAB PO SCH ×2 (08:10→20:01)
[2017-09-24] MEDS: ENOXAPARIN 40 MG/0.4 ML SYRINGE SQ SCH (08:10)
[2017-09-24 09:45] LABS: T4, Free (Free Thyroxine) 1.09 ng/dL (0.78-2.19)
[2017-09-24] MEDS: OLANZapine 5 MG TAB PO SCH ×2 (16:09→20:01)
--- NOTE | 2017-09-24 17:29 | PN ---
PROGRESS NOTE DATE OF SERVICE: 09/24/2017. ATTENDING NOTE: Patient seen and examined by me. I discussed with nurse practitioner, Ms. Silva. Patient admitted with delirium and psychosis. The patient is more awake today but is talking that she lives with her parents and talking about a brother moving in and out of the house. She is actually hallucinating. Sensorium otherwise clear. PHYSICAL EXAMINATION: On examination, afebrile, pulse 82, respiratory 18, blood pressure 120/73. Psych: As above. ASSESSMENT: 1. Acute psychosis appears to be predominant with hallucinations. Delirium component looks like to be less. 2. Acute urinary tract infection. Will complete a course of antibiotics today. PLAN: The patient is currently on Risperdal 0.75 in the morning. Will await further input from Psychiatry. MMODL / IJN: [id number] /
--- NOTE | 2017-09-24 17:35 | PN ---
PROGRESS NOTE ADDENDUM: DATE OF SERVICE: September 24, 2017. ADDENDUM: I spoke to Dr. Perez from Psychiatry. Did discuss the clinical findings from today about the hallucinations. We are going to stop the Risperdal and start the patient on Zyprexa 5 mg starting now and 5 mg from night starting tonight and go from there. MMODL / IJN: [id number] /
--- NOTE | 2017-09-24 18:33 | P.PN ---
Progress Note - Text Progress Note Date: 09/24/17 DATE OF SERVICE: 09/24/2017 PRESENTING COMPLAINT: Acute confusion HISTORY OF PRESENT ILLNESS: 82-year-old female who was found in her house with feces and collateral all around on the floor and she had been lying there. All history was provided by the brother. Patient admitted for possible acute psychotic episode INTERVAL HISTORY: 09/24/2017: Sitting up in bed resting quietly, afebrile, vital signs are stable, continues to have difficulty with some questions such as where she is at. She continues to have hallucinations and her voice has a tendency to trail off.The season, has awareness about who her caregivers are. Psychiatry continues to follow. Tolerating her diet eating between 75 and 100% of her meals, up with assistance , last BM 09/24/2017 09/23/2017: Lying in bed resting quietly. Afebrile, vital signs are stable. Able to answer some simple straightforward questions does hesitate with where she is at is not sure if she does begin to talk about children that are not there or getting in the car. She does struggle with the complete date, knows the season , has some awareness about her caregivers outside hospital.Last BM prior to admission. Psychiatry evaluated the patient today agrees with the continuation of her Risperdal. 09/22/2017: Patient lying in bed awake very talkative. Afebrile, vital signs are stable Answer some simple straightforward questions but does hesitate, struggles with where she is at, does seem at times to be hallucinating, seeing things that are not there. Psychiatry follows the patient agrees with the addition of Risperdal Appetite is good eats 100% of her meals. 09/21/2017: Patient lying in bed is awake, very chatty. Afebrile, vital signs stable, Is able to answer simple straightforward questions, has a good appetite ate 100% of her breakfast, wants to get up out of bed, waiting for psychiatry to see the patient. REVIEW OF SYSTEMS: Done for constitutional ,cardiovascular, GI, pulmonary with relevant findings as above. CURRENT MEDICATIONS Ceftin Lovenox, Narcan, Zyprexa PHYSICAL EXAM VITAL SIGNS: Temperature 96.3, pulse 59, respiratory rate 16, blood pressure 134/73, oxygen saturation 94% on room air GENERAL APPEARANCE: Lying in bed, not in distress HEENT: Normocephalic, Pupils equal. Conjunctiva normal. JVD not raised. Mass not palpable.: RESPIRATORY: Respiratory effort normal. Lungs fair air entry. CARDIOVASCULAR: First and second sounds normal. No edema. ABDOMEN: Soft. Liver and spleen not palpable. No tenderness. No mass palpable. PSYCHIATRY: Alert and oriented 2, with slow responses . Mood and affect somewhat off, jittery. Able to follow simple straightforward commands, does talk about things that are not there. INVESTIGATIONS: LABS none new ASSESSMENT: -Acute Delirium versus psychoses,slow to respond -Ketonuria, likely from starvation -Acute urinary tract infection -Clinical dehydration improving PLAN: psychiatry suggested Risperdal be discontinued altogether and Zyprexa to be added. Discharge planning to place her at [facility] when ready. Plan of care discussed at the bedside we will follow closely. HOTBED OPERATOR statement: Patient was seen and examined by nurse practitioner Leigh Ann Silva and all elements of the case discussed with attending Dr. Mathis
[2017-09-25] MEDS: NAPROXEN 250 MG TAB PO SCH ×2 (07:16→21:24)
[2017-09-25] MEDS: ENOXAPARIN 40 MG/0.4 ML SYRINGE SQ SCH (07:17)
--- NOTE | 2017-09-25 18:42 | P.PN ---
Progress Note - Text Progress Note Date: 09/25/17 DATE OF SERVICE: 09/25/2017 PRESENTING COMPLAINT: Acute confusion HISTORY OF PRESENT ILLNESS: 82-year-old female who was found in her house with feces and collateral all around on the floor and she had been lying there. All history was provided by the brother. Patient admitted for possible acute psychotic episode INTERVAL HISTORY: 09/25/2017: Lying in bed resting quietly, afebrile, vital signs are stable, has more difficulty today answering basic questions does not know where she is think she is at home, looking for her mother. Continues to have hallucinations. Question about how long patient has had these types of hallucinations. Brother will be called to validate. Psychiatry continues to follow. Medications adjusted yesterday. Tolerating her diet eating between 50 and 75% of her meals and does need some assistance/supervision. Requires 2 person assistance to get up and walk very unsteady on her feet. Last BM 09/24/2017. 09/24/2017: Sitting up in bed resting quietly, afebrile, vital signs are stable, continues to have difficulty with some questions such as where she is at. She continues to have hallucinations and her voice has a tendency to trail off.The season, has awareness about who her caregivers are. Psychiatry continues to follow. Tolerating her diet eating between 50 and 75% of her meals, ate some assistance with those meals. up with 2 person assistance, unsteady on her feet last BM 09/23/2017: Lying in bed resting quietly. Afebrile, vital signs are stable. Able to answer some simple straightforward questions does hesitate with where she is at is not sure if she does begin to talk about children that are not there or getting in the car. She does struggle with the complete date, knows the season , has some awareness about her caregivers outside hospital.Last BM prior to admission. Psychiatry evaluated the patient today agrees with the continuation of her Risperdal. 09/22/2017: Patient lying in bed awake very talkative. Afebrile, vital signs are stable Answer some simple straightforward questions but does hesitate, struggles with where she is at, does seem at times to be hallucinating, seeing things that are not there. Psychiatry follows the patient agrees with the addition of Risperdal Appetite is good eats 100% of her meals. 09/21/2017: Patient lying in bed is awake, very chatty. Afebrile, vital signs stable, Is able to answer simple straightforward questions, has a good appetite ate 100% of her breakfast, wants to get up out of bed, waiting for psychiatry to see the patient. REVIEW OF SYSTEMS: Done for constitutional ,cardiovascular, GI, pulmonary with relevant findings as above. CURRENT MEDICATIONS Naprosyn Lovenox, Narcan, Zyprexa PHYSICAL EXAM VITAL SIGNS: Temperature 97.2, pulse 92, respiratory rate 18, blood pressure 151/86, oxygen saturation 96% on room air. GENERAL APPEARANCE: Lying in bed, not in distress HEENT: Normocephalic, Pupils equal. Conjunctiva normal. JVD not raised. Mass not palpable.: RESPIRATORY: Respiratory effort normal. Lungs fair air entry. CARDIOVASCULAR: First and second sounds normal. No edema. ABDOMEN: Soft. Liver and spleen not palpable. No tenderness. No mass palpable. PSYCHIATRY: Alert and oriented 2, with slow responses . Mood and affect somewhat off, jittery. Able to follow simple straightforward commands, does talk about things that are not there, and then is able to come back and answer questions asked to her. 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 We'll await additional input from psychiatry. Discharge planning to place her at [facility] when ready. Plan of care discussed at the bedside we will follow closely. OYSTER PLANTER statement: Patient was seen and examined by nurse practitioner Leigh Ann Silva and all elements of the case discussed with attending Dr. Mathis
[2017-09-25] MEDS: OLANZapine 5 MG TAB PO SCH (21:24)
--- NOTE | 2017-09-25 21:51 | PN ---
PROGRESS NOTE DATE OF SERVICE: September 25, 2017. ATTENDING NOTE: The patient seen and examined by me. I discussed with nurse practitioner, Ms. Silva. The patient is awake, still talking about people not there. PHYSICAL EXAMINATION: Temperature 98, pulse 90, respiratory 20, blood pressure 157/90, pulse ox 94% on room air.. Called patient's brother and did talk to him. Says quite a bit over last few months the patient noted to be progressively going downhill. The patient would sometimes get back to her area where she lives and she would forget exactly where the house is and over a period of time this continued to get much worse. ASSESSMENT: Given the presentation, I think this is Alzheimer's dementia with possibly psychotic features, element of delirium probably on presentation. I did call Dr. Perez, if he okays then I will be able to discharge the patient. The patient has now completed a course of antibiotic for the UTI. MMLAINAL / IJEsperanza: [id number] /
--- NOTE | 2017-09-26 05:27 | CONS ---
CONSULTATION DATE OF SERVICE: 09/25/2017. PURPOSE FOR CONSULTATION: Evaluate for acute confusion. INTERVAL HISTORY: Patient has been doing fair. She had a quiet evening last night. She slept well. Today she has been awake. Nursing notes that she generally maintains a good mood. She continues to be quite confused. She is not able to answer orienting questions. She often will talk though much of what she says is not very coherent. She seems to be calm and pleasant in her manner. It is not clear that her cognitive difficulties relates to any acute issue of thought disorder. There is no indication for mood or anxiety disorder. I reviewed the case with Dr. Mathis. Dr. Mathis believes that she is stable and that overall she has had progressive cognitive decline requiring placement in appropriate facility. He has talked to her guardian and others who know the patient and apparently agree with that assessment and recommendation. I also would agree with that. I indicated to Dr. Mathis that it would be reasonable for the patient to continue on Zyprexa 5 mg at bedtime. Zyprexa may be helpful in regards to her going into a different facility because that may cause distress with a new environment and new people around her, particularly if she already is having cognitive difficulties and likely some difficulties with response to her surrounding environment. My understanding is patient will be discharged tomorrow. If there are any further issues, please contact me. MARICHUY / JOEL: [id number] /
[2017-09-26 06:41] VITALS: BP 130/91; RESP 22; TEMP 97.9
[2017-09-26 09:55] LABS: Basophils % (A) 0 %; Eosinophils # (A) 0.2 k/uL (0-0.7); Eosinophils % (A) 4 %; HCT 42.4 % (34.0-46.0); HGB 13.2 gm/dL (11.4-16.0); Lymphocytes # (A) 0.8 k/uL (1.0-4.8); Lymphocytes % (A) 16 %; MCH 28.4 pg (25.0-35.0); MCHC 31.2 g/dL (31.0-37.0); MCV 90.9 fL (80.0-100.0); Mean Platelet Volume 7.5; Monocytes # (A) 0.5 k/uL (0-1.0); Monocytes % (A) 10 %; Neutrophils # (A) 3.4 k/uL (1.3-7.7); Neutrophils % (A) 68 %; Platelet Count 191 k/uL (150-450); RBC 4.67 m/uL (3.80-5.40)
[2017-09-26 10:07] LABS: Anion Gap 9 mmol/L; Blood Urea Nitrogen 17 mg/dL (7-17); Calcium 9.4 mg/dL (8.4-10.2); Carbon Dioxide 28 mmol/L (22-30); Chloride 108 mmol/L (98-107); Glucose 134 mg/dL (74-99); Potassium 3.9 mmol/L (3.5-5.1); Sodium 145 mmol/L (137-145)
[2017-09-26] MEDS: ENOXAPARIN 40 MG/0.4 ML SYRINGE SQ SCH (10:20)
[2017-09-26] MEDS: NAPROXEN 250 MG TAB PO SCH (10:20)
[2017-09-26 10:26] VITALS: PULSE 91
--- NOTE | 2017-09-26 12:40 | DS ---
DISCHARGE SUMMARY DATE OF ADMISSION: 09/20/2017. DATE OF DISCHARGE: 09/26/2017 FINAL DIAGNOSES: 1. Acute delirium, multifactorial could be dehydration. 2. Ketonuria from starvation. 3. Likely Alzheimer's dementia with psychotic features. 4. Clinical dehydration. 5. Acute urinary tract infection, present on admission. HOSPITAL COURSE: This patient presented with acute confusion with the house in total disarray, very confused. Did talk to the brother. The patient has been gradually becoming progressively more and more forgetful over a period of time, months and forgetting where her house was. Patient was completely disoriented, delirious when she first came in, found to be dehydrated. The patient was hydrated, also had a UTI, treated with antibiotics, initially put on Risperdal then switched over to Zyprexa after discussing with Dr. Perez. Patient does hallucinate at times. Otherwise, tolerating a diet. ON EXAMINATION: Lungs are clear. CARDIOVASCULAR: First and second sounds normal. The patient at her baseline has hallucinated times. Blood pressure is 130/91. DISCHARGE MEDICATIONS: 1. Aspirin 81 mg p.o. daily. 2. Fish oil 1000 mg p.o. daily. 3. Ativan 0.5 p.o. t.i.d. p.r.n. for anxiety, agitation. 4. Naproxen 250 mg p.o. q.12 p.r.n. for pain. 5. Zyprexa 5 mg p.o. q.h.s. 6. Lisinopril 10 mg p.o. q.h.s. 7. Chlorthalidone 12.5 mg p.o. daily. DISPOSITION: [facility]. Follow up with Dr. Lawton. Follow with Psychiatry p.r.n. MMODL / IJN: [id number] /
== END 2017-09-26 15:11 | DRG 885 ==
LOC: EC 12:10 → 5MS5E 14:40 → 4MS4W 16:36
PROVIDERS: ADMIT Hospitalist; ATTEND Hospitalist
DX: F23 Brief psychotic disorder (principal); G30.9 Alzheimer's disease, unspecified; F02.81 Dementia in other diseases classified elsewhere, unspecified severity, with behavioral disturbance; E86.0 Dehydration; N39.0 Urinary tract infection, site not specified; F05 Delirium due to known physiological condition; R82.4 Acetonuria; T73.0XXA Starvation, initial encounter; I10 Essential (primary) hypertension; W19.XXXA Unspecified fall, initial encounter; R29.6 Repeated falls; F31.9 Bipolar disorder, unspecified; R45.1 Restlessness and agitation; Z79.891 Long term (current) use of opiate analgesic; Z79.899 Other long term (current) drug therapy; Z80.9 Family history of malignant neoplasm, unspecified; Z91.83 Wandering in diseases classified elsewhere; Z79.82 Long term (current) use of aspirin
CPT/HCPCS: 36415; 70450; 71046; 72170; 80048; 80053; 80306; 81001; 82550; 82553; 84439; 84443; 84484; 85025; 85610; 85730; 87086; 93005; 96361; 96374; 99285